=== PATIENT | female | born 1985 | race American Indian/Alaskan Native ===

== ENCOUNTER 2017-02-14 23:14 | Emergency (ER) | payer MEDICAID, OTHER ==
[2017-02-14 23:24] VITALS: BP 119/86; PULSE 80; RESP 20; TEMP 97.8; O2SAT 100
--- NOTE | 2017-02-14 23:58 | C.PDOC ---
History Of Present Illness 31 y/o female presents to ED with c/o headache, sore throat, nasal congestion, and sneezing since yesterday. Patient reports taking Theraflu at home with no relief. Patient also states she has had associated painful swallowing, which prompted ER visit today. Otherwise, denies fever, chills, nausea, vomiting, diarrhea, sick contacts, or recent travel. Time Seen by Provider: 02/14/17 23:29 Chief Complaint (Nursing): ENT Problem History Per: Patient History/Exam Limitations: None Onset/Duration Of Symptoms: Days Current Symptoms Are (Timing): Still Present Quality (Mouth/Throat): Tenderness, Swelling Past Medical History Reviewed: Historical Data, Nursing Documentation, Vital Signs Vital Signs: Last Vital Signs Temp 97.8 F 02/14/17 23:22 Pulse 80 02/14/17 23:22 Resp 20 02/14/17 23:22 BP 119/86 02/14/17 23:22 Pulse Ox 100 02/15/17 00:06 - Medical History PMH: Asthma (as a child), Bronchitis Family History: States: Unknown Family Hx - Social History Hx Tobacco Use: No Hx Alcohol Use: No Hx Substance Use: No - Immunization History Hx Tetanus Toxoid Vaccination: No Hx Influenza Vaccination: No Hx Pneumococcal Vaccination: No Review Of Systems Except As Marked, All Systems Reviewed And Found Negative. Constitutional: Negative for: Fever, Chills ENT: Positive for: Nose Congestion, Throat Pain Respiratory: Negative for: Cough, Shortness of Breath, Wheezing Gastrointestinal: Negative for: Vomiting, Abdominal Pain, Diarrhea Skin: Negative for: Rash Neurological: Positive for: Headache. Negative for: Dizziness Physical Exam - Physical Exam Appears: Non-toxic, No Acute Distress Skin: Normal Color, Warm, Dry Head: Atraumatic, Normacephalic Eye(s): bilateral: Normal Inspection, PERRL, EOMI Ear(s): Bilateral: Normal Nose: Other (enlarged nasal turbinates bilaterally) Oral Mucosa: Moist Throat: Erythema (tonsilar, bilaterally), No Exudate, No Drooling, No Mass, Other ((+) bilateral tonsilar swelling) Neck: Supple Chest: Symmetrical Cardiovascular: Rhythm Regular Respiratory: Normal Breath Sounds, No Rales, No Rhonchi, No Wheezing Gastrointestinal/Abdominal: Soft, No Tenderness Back: Normal Inspection Extremity: Normal ROM, Capillary Refill (< 2 sec. ) Neurological/Psych: Oriented x3, Normal Speech, Normal Cognition ED Course And Treatment O2 Sat by Pulse Oximetry: 100 (RA) Pulse Ox Interpretation: Normal Progress Note: Treated with Motrin in ED. On reassessment, patient reports improvement of throat pain, and is resting comfortably in no acute distress. Patient instructed to follow up with PMD/clinic within 1-2 days for further evaluation. Disposition Counseled Patient/Family Regarding: Diagnosis, Need For Followup, Rx Given - Disposition Referrals: [facility] [Outside] Disposition Time: 23:55 Condition: STABLE Additional Instructions: Increase PO fluids Take meds as directed Return to ER if worse Prescriptions: Ibuprofen [Motrin] 600 mg PO Q6H #30 tab Azithromycin [Zithromax] 250 mg PO DAILY #6 tab Cetirizine HCl [Zyrtec] 10 mg PO DAILY #20 capsule Instructions: Pharyngitis (ED), Sinusitis (ED) Forms: Work Excuse - Clinical Impression Clinical Impression: Sinusitis, Pharyngitis - PA / MED AIDE / Resident Statement MD/DO has reviewed & agrees with the documentation as recorded. - Scribe Statement The provider has reviewed the documentation as recorded by the Alkaibmarcia Zamorano All medical record entries made by the Burton were at my direction and personally dictated by me. I have reviewed the chart and agree that the record accurately reflects my personal performance of the history, physical exam, medical decision making, and the department course for this patient. I have also personally directed, reviewed, and agree with the discharge instructions and disposition.
== END 2017-02-15 00:40 | disposition home or self-care (01) ==
LOC: C.ER 23:14
DX: J32.9 Chronic sinusitis, unspecified (principal); J02.9 Acute pharyngitis, unspecified

== ENCOUNTER 2017-04-19 17:00 | Emergency (ER) | payer MEDICAID, OTHER ==
[2017-04-19 17:06] VITALS: O2SAT 100
--- NOTE | 2017-04-19 17:38 | C.PDOC ---
History Of Present Illness 31 y/o female presents to the ED with complains of sore throat, body aches, congestion and mild headache x2 days. Pt denies fever, ear pain, cough or any other complaints. No sick contacts. No PMHx. Time Seen by Provider: 04/19/17 17:21 Chief Complaint (Nursing): ENT Problem History Per: Patient History/Exam Limitations: no limitations Onset/Duration Of Symptoms: Days Current Symptoms Are (Timing): Still Present Severity: Mild Recent travel outside of the [place]: No Past Medical History Reviewed: Historical Data, Nursing Documentation, Vital Signs Vital Signs: Last Vital Signs Temp 98.6 F 04/19/17 17:03 Pulse 79 04/19/17 17:03 Resp 20 04/19/17 17:03 BP 128/77 04/19/17 17:03 Pulse Ox 100 04/19/17 17:40 - Medical History PMH: Asthma (as a child), Bronchitis Family History: States: Unknown Family Hx - Social History Hx Tobacco Use: No Hx Alcohol Use: No Hx Substance Use: No - Immunization History Hx Tetanus Toxoid Vaccination: No Hx Influenza Vaccination: No Hx Pneumococcal Vaccination: No Review Of Systems Constitutional: Positive for: Other (body aches). Negative for: Fever, Chills ENT: Positive for: Nose Congestion, Throat Pain. Negative for: Ear Pain Respiratory: Negative for: Cough Gastrointestinal: Negative for: Vomiting Neurological: Positive for: Headache Physical Exam - Physical Exam Appears: Non-toxic, No Acute Distress Skin: Warm, Dry, No Rash Head: Atraumatic, Normacephalic Ear(s): Bilateral: Normal Nose: Normal Oral Mucosa: Moist Throat: Erythema, No Exudate Neck: Normal, Normal ROM, Supple Chest: Symmetrical Cardiovascular: Rhythm Regular, No Murmur Respiratory: Normal Breath Sounds, No Rales, No Rhonchi, No Wheezing Extremity: Bilateral: Atraumatic Neurological/Psych: Oriented x3, Normal Speech ED Course And Treatment O2 Sat by Pulse Oximetry: 100 (room air) Pulse Ox Interpretation: Normal Progress Note: Plan: tylenol, flu swab, rapid strep Disposition - Disposition Referrals: [facility] [Outside] [facility] [Outside] [facility] [Outside] Disposition: HOME/ ROUTINE Disposition Time: 18:29 Condition: GOOD Additional Instructions: please follow up with your doctor/clinic. return to er with worsening symptoms or concerns. Instructions: Viral Syndrome (ED) - Clinical Impression Clinical Impression: Viral syndrome - Scribe Statement The provider has reviewed the documentation as recorded by the Alkaibmarcia Jordan Provider Attestation: All medical record entries made by the Burton were at my direction and personally dictated by me. I have reviewed the chart and agree that the record accurately reflects my personal performance of the history, physical exam, medical decision making, and the department course for this patient. I have also personally directed, reviewed, and agree with the discharge instructions and disposition.
[2017-04-19 18:30] VITALS: BP 122/79; PULSE 78; RESP 18; TEMP 97.8
== END 2017-04-19 18:30 | disposition home or self-care (01) ==
LOC: C.ER 17:00
DX: B34.9 Viral infection, unspecified (principal)

== ENCOUNTER 2017-04-29 23:42 | Emergency (ER) | payer MEDICAID, OTHER ==
[2017-04-30 00:05] VITALS: BP 104/71; PULSE 77; TEMP 99; O2SAT 97
--- NOTE | 2017-04-30 00:21 | C.PDOC ---
History Of Present Illness Patient is a 31 year old female who presents to the ER with a complaint of back pain after she tripped and landed on her hands and knees one hour ago. Patient states she took BC powder with no relief. Patient has a Hx of herniated discs. Denies change in sensation, incontinence, dysuria, hematuria or direct trauma to the back. Time Seen by Provider: 04/30/17 00:07 Chief Complaint (Nursing): Back Pain History Per: Patient History/Exam Limitations: no limitations Onset/Duration Of Symptoms: Hrs Current Symptoms Are (Timing): Still Present Quality Of Discomfort: Unable To Describe Previous Symptoms: None Associated Symptoms: denies: Incontinence, New Weakness, New Numbness, Other ( Dysuria, hematuria) Recent travel outside of the [place]: No Past Medical History Reviewed: Historical Data, Nursing Documentation, Vital Signs Vital Signs: Last Vital Signs Temp 99.0 F 04/30/17 00:02 Pulse 77 04/30/17 00:02 Resp 20 04/30/17 00:28 BP 104/71 04/30/17 00:02 Pulse Ox 97 04/30/17 01:59 - Medical History PMH: Asthma (as a child), Back Problems, Bronchitis Surgical History: No Surg Hx Family History: States: Unknown Family Hx - Social History Hx Tobacco Use: No Hx Alcohol Use: Yes Hx Substance Use: No - Immunization History Hx Tetanus Toxoid Vaccination: No Hx Influenza Vaccination: No Hx Pneumococcal Vaccination: No Review Of Systems Genitourinary: Negative for: Dysuria, Incontinence, Hematuria Musculoskeletal: Positive for: Back Pain Neurological: Negative for: Weakness, Numbness Physical Exam - Physical Exam Appears: Non-toxic, No Acute Distress Skin: Normal Color, Warm, Dry Head: Atraumatic, Normacephalic Eye(s): bilateral: Normal Inspection, EOMI Nose: Normal Oral Mucosa: Moist Chest: Symmetrical Respiratory: No Accessory Muscle Use, Other (Speaking in complete sentences) Gastrointestinal/Abdominal: Soft, No Tenderness, Other (obese) Back: No CVA Tenderness, No Vertebral Tenderness, Paraspinal Tenderness (Lumbar) Extremity: Normal ROM Extremity: Bilateral: Atraumatic, Normal Color And Temperature Neurological/Psych: Oriented x3, Normal Speech, Normal Motor, Normal Sensation, Other (No focal deficits) Gait: Steady ED Course And Treatment O2 Sat by Pulse Oximetry: 97 (Room air) Pulse Ox Interpretation: Normal Progress Note: Patient was offered spinal x-ray, however, she refused. Patient is resting comfortably, no fever, no bony tenderness, no numbness, no weakness , or abdominal pain. Patient is ambulatory in the emergency department with no signs of discomfort. Patient was advised to follow up with their physician in 1- 2 days. Will give Rx and discharge home. Disposition - Disposition Disposition: HOME/ ROUTINE Disposition Time: 00:19 Condition: STABLE Additional Instructions: REst and ice the area. Follow up with your PMD in 1-2 days. Return to ER if symptoms persist or worsen. Prescriptions: Cyclobenzaprine [Cyclobenzaprine HCl] 10 mg PO BID #15 tab Naproxen [Naprosyn] 1 tab PO BID PRN #20 tab PRN Reason: Pain Instructions: Back Pain (ED) Forms: Work Excuse - Clinical Impression Clinical Impression: Low back pain - Scribe Statement The provider has reviewed the documentation as recorded by the Scribmarcia Hernandez All medical record entries made by the Scribe were at my direction and personally dictated by me. I have reviewed the chart and agree that the record accurately reflects my personal performance of the history, physical exam, medical decision making, and the department course for this patient. I have also personally directed, reviewed, and agree with the discharge instructions and disposition.
[2017-04-30 00:29] VITALS: RESP 20
== END 2017-04-30 00:28 | disposition home or self-care (01) ==
LOC: C.ER 23:42
DX: M54.5 Low back pain (principal)

== ENCOUNTER 2017-07-15 22:01 | Emergency (ER) | payer OTHER ==
[2017-07-15 22:18] VITALS: BP 127/70; PULSE 82; RESP 20; TEMP 98.6; O2SAT 98
[2017-07-15] MEDS ORDERED: Naproxen 550 mg Tab PO STA (23:04)
[2017-07-15] MEDS ORDERED: Naproxen 550 mg Tab PO ONE (23:14)
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
--- NOTE | 2017-07-16 09:15 | RAD ---
PROCEDURE: Radiographs of the Lumbar Spine. HISTORY: pain COMPARISON: No prior. FINDINGS: BONES: Normal alignment. No listhesis. No fracture. DISC SPACES: Unremarkable. OTHER FINDINGS: None. IMPRESSION: Unremarkable radiographs of the lumbar spine.
== END 2017-07-15 23:55 | disposition home or self-care (01) ==
LOC: C.ER 22:01
DX: M54.5 Low back pain (principal); V89.2XXA Person injured in unspecified motor-vehicle accident, traffic, initial encounter

== ENCOUNTER 2017-11-19 01:03 | Emergency (ER) | payer OTHER ==
[2017-11-19 01:17] VITALS: TEMP 98.3
[2017-11-19] MEDS ORDERED: Albuterol 0.083% Inhal Sol (2.5 mg/3 mL) UD INH STA (01:28)
[2017-11-19] MEDS ORDERED: Albuterol 0.083% Inhal Sol (2.5 mg/3 mL) UD ONE (01:41)
--- NOTE | 2017-11-19 01:56 | C.PDOC ---
History Of Present Illness Patient is a 32 y/o female who presents to the ED with a complaint of a cough for the last 3 days. Patient reports to have seen PMD 2 days ago, receiving cough medication and antibiotics, but denies feeling any improvement. Notes feeling chest tightness today at work, prompting ED visit. Patient has a Hx of asthma with intermittent exacerbations; denies inhaler use today. No other physical complaints at this time. Time Seen by Provider: 11/19/17 01:16 Chief Complaint (Nursing): Cough, Cold, Congestion History Per: Patient History/Exam Limitations: no limitations Onset/Duration Of Symptoms: Days (3 days) Current Symptoms Are (Timing): Still Present Associated Symptoms: Cough Recent travel outside of the [place]: No Past Medical History Reviewed: Historical Data, Nursing Documentation, Vital Signs Vital Signs: Last Vital Signs Temp 98.3 F 11/19/17 01:13 Pulse 78 11/19/17 01:13 Resp 18 11/19/17 01:13 BP 118/88 11/19/17 01:13 Pulse Ox 100 11/19/17 01:59 - Medical History PMH: Asthma (as a child), Back Problems, Bronchitis Surgical History: No Surg Hx Family History: States: Unknown Family Hx - Social History Hx Tobacco Use: No Hx Alcohol Use: Yes Hx Substance Use: No - Immunization History Hx Tetanus Toxoid Vaccination: No Hx Influenza Vaccination: No Hx Pneumococcal Vaccination: No Review Of Systems Cardiovascular: Positive for: Chest Pain (chest "tightness") Respiratory: Positive for: Cough Physical Exam - Physical Exam Appears: Well, Non-toxic, No Acute Distress Eye(s): bilateral: Normal Inspection Oral Mucosa: Moist Respiratory: Decreased Breath Sounds, No Accessory Muscle Use, No Rhonchi, Wheezing (expiratory wheeze) Neurological/Psych: Oriented x3, Normal Speech ED Course And Treatment O2 Sat by Pulse Oximetry: 100 (room air) Pulse Ox Interpretation: Normal Progress Note: Albuterol x2 and nebulizer treament x2 administered. On re- evaluation, patient is feeling better and is resting comfortably. Patient advised to continue current medications and is to be discharged. Disposition - Disposition Disposition: HOME/ ROUTINE Disposition Time: 02:41 Condition: STABLE Additional Instructions: Please follow up with PMD Continue current meds at home INcrease fluids Return to ER if worse Prescriptions: Albuterol HFA [Ventolin HFA 90 mcg/actuation (8 g)] 2 puff IH [id number] #1 inhaler Benzonatate [Tessalon Perles] 100 mg PO TID #20 sgl predniSONE [Prednisone] 40 mg PO DAILY #8 tab Instructions: Upper Respiratory Infection (ED) Forms: [facility] (Kyrgyz) - Clinical Impression Clinical Impression: Upper respiratory infection - Scribe Statement The provider has reviewed the documentation as recorded by the Scribe Jeana Saleh All medical record entries made by the Scribe were at my direction and personally dictated by me. I have reviewed the chart and agree that the record accurately reflects my personal performance of the history, physical exam, medical decision making, and the department course for this patient. I have also personally directed, reviewed, and agree with the discharge instructions and disposition.
[2017-11-19 02:56] VITALS: BP 110/80; PULSE 84; RESP 16
[2017-11-19 03:14] VITALS: O2SAT 100
== END 2017-11-19 02:56 | disposition home or self-care (01) ==
LOC: C.ER 01:03
DX: J06.9 Acute upper respiratory infection, unspecified (principal)

== ENCOUNTER 2017-12-11 22:25 | Emergency (ER) | payer OTHER ==
[2017-12-11 23:17] VITALS: BP 108/75; PULSE 80; RESP 16; TEMP 98.3; O2SAT 97
[2017-12-11] MEDS ORDERED: Albuterol 0.083% Inhal Sol (2.5 mg/3 mL) UD IH STA (23:46)
--- NOTE | 2017-12-11 23:52 | C.PDOC ---
History Of Present Illness 32 year old female with Hx of asthma presents to the ER for an evaluation of cold symptoms associated with low grade fever, chills, body aches, nasal congestion, runny nose, dry cough for the past 3 days. Otherwise, pt denies high fever, severe headache, neck pain, rash, visual changes, drooling, trismus , denies CP, SOB, abd. pain, V/D, back pain, UTI sx, rash. Ambulate to Ed for evaluation, not in any apparent distress. Time Seen by Provider: 12/11/17 23:17 Chief Complaint (Nursing): Flu-like Symptoms History Per: Patient History/Exam Limitations: no limitations Onset/Duration Of Symptoms: Days Current Symptoms Are (Timing): Still Present Location Of Pain: Diffuse Myalgias Associated Symptoms: Fever, Chills, Sore Throat, Cough, Myalgias, Other ((+) Cold Symptoms) Ear Symptoms: Bilateral: None Recent travel outside of the [place]: No Past Medical History Reviewed: Historical Data, Nursing Documentation, Vital Signs Vital Signs: Last Vital Signs Temp 98.3 F 12/11/17 23:15 Pulse 80 12/11/17 23:15 Resp 16 12/11/17 23:15 BP 108/75 12/11/17 23:15 Pulse Ox 97 12/12/17 00:04 - Medical History PMH: Asthma (as a child), Back Problems, Bronchitis Family History: States: Unknown Family Hx - Social History Hx Tobacco Use: No Hx Alcohol Use: Yes Hx Substance Use: No - Immunization History Hx Tetanus Toxoid Vaccination: No Hx Influenza Vaccination: No Hx Pneumococcal Vaccination: No Review Of Systems Except As Marked, All Systems Reviewed And Found Negative. Constitutional: Positive for: Fever, Chills Cardiovascular: Negative for: Chest Pain Respiratory: Positive for: Cough. Negative for: Shortness of Breath Gastrointestinal: Negative for: Nausea, Vomiting, Abdominal Pain Musculoskeletal: Positive for: Other (Body aches) Physical Exam - Physical Exam Appears: Well, Non-toxic Skin: Normal Color, Warm, Dry, No Rash Head: Normacephalic Eye(s): bilateral: PERRL Ear(s): Bilateral: Normal Nose: No Flaring, Discharge (B/L nasal congestion with scant clear rhinorrhea) Oral Mucosa: Moist Tongue: Normal Appearing Lips: Normal Appearing Throat: No Erythema, No Exudate, No Drooling Neck: Trachea Midline, Supple Chest: Symmetrical, No Tenderness Cardiovascular: Rhythm Regular, No Friction Rub, No Murmur, No JVD Respiratory: No Decreased Breath Sounds, No Accessory Muscle Use, No Rales, No Rhonchi, No Stridor, Wheezing (Scattered bibasilar) Gastrointestinal/Abdominal: Soft, No Tenderness Back: No CVA Tenderness Extremity: Normal ROM, No Pedal Edema, No Deformity, No Swelling Neurological/Psych: Oriented x3, Normal Speech ED Course And Treatment O2 Sat by Pulse Oximetry: 97 (Room air) Pulse Ox Interpretation: Normal Progress Note: Prednisone and albuterol nebulizer administered. On re- evaluation, pt is afebrile, hemodynamicaly stable. Non-toxic. AMbulatory in ED with stable gait. PUlseOx 97% RA. Neck: SUpple, (-) meningeal sign. ENT: No acute findings. neck: Supple, (-) meningeal sign. Lungs: CTA B/L, BS equal B/L. Abd: benign. Pt has clinical findings c/w Inflienza- like illness. Pt advised. ref. to /[facility] in 2-3 days for re-eavl. return if any new changes. Disposition Counseled Patient/Family Regarding: Diagnosis, Need For Followup, Rx Given - Disposition Referrals: [facility] [Outside] Disposition: HOME/ ROUTINE Disposition Time: 00:07 Condition: STABLE Additional Instructions: ENCOURAGE FLUIDS TAKE MEDICATION PRESCRIBED NEBULIZER TREATMENT EVERY 6 HOURS FOR 2-3 DAYS FOLLOW UP WITH PMD IN 2-3 DAYS FOR RE-EVALUATION. RETURN TO ED IF ANY WORSENING OR NEW CHANGES. Prescriptions: Albuterol HFA [Ventolin HFA 90 mcg/actuation (8 g)] 1 puff IH Q6 #1 inhaler Azithromycin [Zithromax] 250 mg PO DAILY #4 tab Prednisone [Deltasone] 40 mg PO DAILY #6 tablet Instructions: Acute Bronchitis (ED) Forms: [facility] (Armenian) - Clinical Impression Clinical Impression: Bronchitis, Asthma - PA / MED DIR / Resident Statement MD/DO has reviewed & agrees with the documentation as recorded. - Scribe Statement The provider has reviewed the documentation as recorded by the Scribe Cesar Hernandez All medical record entries made by the Scribe were at my direction and personally dictated by me. I have reviewed the chart and agree that the record accurately reflects my personal performance of the history, physical exam, medical decision making, and the department course for this patient. I have also personally directed, reviewed, and agree with the discharge instructions and disposition.
== END 2017-12-12 00:46 | disposition home or self-care (01) ==
LOC: C.ER 22:25
DX: J45.909 Unspecified asthma, uncomplicated (principal)